=== PATIENT | female | born 1955 | race Caucasian/White ===

== ENCOUNTER 2021-09-09 15:09 | Emergency (ER) | payer OTHER ==
[~2021-09-09] VITALS: Ht 154.9 cm; Wt 77.1 kg
[2021-09-09 15:20] VITALS: BP 178/73
[2021-09-09] MEDS ORDERED: KETOROLAC 30 MG/ML VIAL IM ONE (16:00)
[2021-09-09] MEDS ORDERED: NAPR-54 PO (16:41)
[2021-09-09] MEDS ORDERED: CYCL-711 PO (16:41)
--- NOTE | 2021-09-09 17:00 | NUR ---
65/F BIB SELF FOR LEFT SIDED BACK PAIN RADIATING TO HER CHEST. STATES SHE FELL ON HER LEFT SIDE ONE WEEK AGO. DENIES SOB, COUGH. MEDHX: PREDIABETES ALLERGIES: DENIES
[2021-09-09] MEDS ORDERED: KETOROLAC 30 MG/ML VIAL ONE (17:07)
[2021-09-09 17:18] VITALS: BP 135/73
--- NOTE | 2021-09-09 17:19 | NUR ---
Patient discharged with v/s stable. Written and verbal after care instructions given FOR CONTUSION AND MUSCLE STRAIN and explained. Patient alert, oriented and verbalized understanding of instructions. Ambulatory with steady gait. All questions addressed prior to discharge. ID band removed. Patient advised to follow up with PMD. Rx of NAPROXEN AND FLEXERIL given. Patient educated on indication of medication including possible reaction and side effects. Opportunity to ask questions provided and answered.
== END 2021-09-09 17:19 | disposition home or self-care (01) ==
LOC: MED 15:09
DX: M54.6 Pain in thoracic spine (principal)
CPT/HCPCS: 71045; 96372; 99283; J1885

== ENCOUNTER 2021-09-15 11:51 | Emergency (ER) | payer OTHER ==
[~2021-09-15] VITALS: Ht 154.9 cm; Wt 77.1 kg
[~2021-09-15 11:51] MED LIST: CYCL-711 PO; NAPR-54 PO
[2021-09-15 11:59] VITALS: BP 153/90
--- NOTE | 2021-09-15 12:03 | NUR ---
pt ambulated to lobby with steady gait
[2021-09-15] MEDS ORDERED: ACYC-258 PO (13:11)
[2021-09-15 13:17] VITALS: BP 153/90
--- NOTE | 2021-09-15 13:17 | NUR ---
Patient discharged with v/s stable. Written and verbal after care instructions given and explained. Patient alert, oriented and verbalized understanding of instructions. Ambulatory with steady gait. All questions addressed prior to discharge. ID band removed. Patient advised to follow up with PMD. Rx of acyclovir given. Patient educated on indication of medication including possible reaction and side effects. Opportunity to ask questions provided and answered.
--- NOTE | 2021-09-15 13:17 | NUR ---
pt assessed and discharged by [facility]
== END 2021-09-15 13:17 | disposition home or self-care (01) ==
LOC: MED 11:51
DX: B02.9 Zoster without complications (principal); Z79.899 Other long term (current) drug therapy; Z79.1 Long term (current) use of non-steroidal anti-inflammatories (NSAID)
CPT/HCPCS: 99283

== ENCOUNTER 2021-09-24 11:27 | Emergency (ER) | payer OTHER ==
[~2021-09-24] VITALS: Ht 154.9 cm; Wt 74.8 kg
[~2021-09-24 11:27] MED LIST changes: +ACYC-258 PO
[2021-09-24 12:08] VITALS: BP 113/68
[2021-09-24] MEDS ORDERED: DIPH25TA53 PO (12:52)
[2021-09-24] MEDS ORDERED: GABA300C PO (12:52)
[2021-09-24] MEDS ORDERED: ACET-10509 PO (12:52)
[2021-09-24 13:25] VITALS: BP 113/68
--- NOTE | 2021-09-24 13:25 | NUR ---
Patient discharged with v/s stable. Written and verbal after care instructions given and explained. Patient alert, oriented and verbalized understanding of instructions. Ambulatory with steady gait. All questions addressed prior to discharge. ID band removed. Patient advised to follow up with PMD. Rx of TYLENOL EXTRA STRENGTH TAB, BENADRYL, AND GABAPENTIN given. Patient educated on indication of medication including possible reaction and side effects. Opportunity to ask questions provided and answered.
== END 2021-09-24 13:25 | disposition home or self-care (01) ==
LOC: MED 11:27
DX: B02.29 Other postherpetic nervous system involvement (principal); Z76.0 Encounter for issue of repeat prescription; Z79.899 Other long term (current) drug therapy
CPT/HCPCS: 99283